=== PATIENT | female | born 1970 | race Caucasian/White ===

== ENCOUNTER 2018-10-10 20:00 | Emergency (ER) | payer MEDICAID | END 2018-10-11 00:47 | disposition home or self-care (01) | LOC: FTE 10-11 00:47 | DX: M25.562 Pain in left knee (principal) | CPT/HCPCS: 29505; 73562; 99283-25 ==

== ENCOUNTER 2018-11-04 07:00 | Emergency (ER) | payer MEDICAID ==
[2018-11-04 07:48] LABS: ADD MAN DIFF? NO
[2018-11-04] MEDS: morphine 4 MG/ML VIAL IV (07:48)
[2018-11-04] MEDS: ONDANSETRON 4 MG INJ IV (07:48)
[2018-11-04] MEDS: SOD CHLORIDE 0.9% 1,000 ML IV (07:48)
[2018-11-04 07:50] LABS: WHITE BLOOD COUNT 16.1 10^3/ul (4.8-10.8)
[2018-11-04 07:50] LABS: BASOPHILS % 0.2 % (0.0-2.0); EOSINOPHILS % 0.1 % (0.0-7.0); HEMATOCRIT 37.6 % (37.0-47.0); HEMOGLOBIN 12.7 g/dl (12.0-16.0); LYMPHOCYTES # 0.8 10^3/ul (0.8-2.9); LYMPHOCYTES % 5.1 % (15.0-51.0); MEAN CORPUSCULAR HEMOGLOBIN 31.4 pg (29.0-33.0); MEAN CORPUSCULAR HGB CONC 33.8 g/dl (32.0-37.0); MEAN CORPUSCULAR VOLUME 93.1 fl (82.0-101.0); MEAN PLATELET VOLUME 9.9 fl (7.4-10.4); MONOCYTE # 1.4 10^3/ul (0.3-0.9); MONOCYTES % 8.8 % (0.0-11.0); NEUTROPHIL # 13.7 10^3/ul (1.6-7.5); NEUTROPHILS % 85.2 % (39.0-77.0); PLATELET COUNT 250 10^3/UL (140-415); RED BLOOD COUNT 4.04 10^6/ul (4.20-5.40); RED CELL DISTRIBUTION WIDTH 12.7 % (11.5-14.5)
[2018-11-04 08:03] LABS: ADD UMIC YES; UR ASCORBIC ACID NEGATIVE (NEGATIVE); UR BACTERIA MANY /HPF (NONE SEEN); UR BILIRUBIN (Dip) NEGATIVE (NEGATIVE); UR BLOOD (Dip) 2+ mg/dL (NEGATIVE); UR CLARITY CLOUDY (CLEAR); UR COLOR YELLOW (YELLOW); UR GLUCOSE (Dip) NEGATIVE (NEGATIVE); UR KETONES (Dip) NEGATIVE (NEGATIVE); UR LEUKOCYTE ESTERASE (Dip) 3+ Leu/ul (NEGATIVE); UR MUCUS MODERATE /HPF (NONE SEEN); UR NITRITE (Dip) POSITIVE (NEGATIVE); UR RBC 5 /HPF (0-5); UR RENAL EPITHELIAL CELL FEW /HPF (NONE SEEN); UR SPECIFIC GRAVITY (Dip) 1.017 (1.003-1.030); UR SQUAMOUS EPITHELIAL CELL FEW /HPF (FEW); UR TOTAL PROTEIN (Dip) 1+ mg/dl (NEGATIVE); UR UROBILINOGEN (Dip) NEGATIVE (NEGATIVE); UR WBC > 182 /HPF (0-5)
[2018-11-04 08:07] LABS: ALANINE AMINOTRANSFERASE 19 IU/L (13-69); ALBUMIN 3.9 g/dl (3.3-4.9); ALBUMIN/GLOBULIN RATIO 1.08; ALKALINE PHOSPHATASE 64 IU/L (42-121); AMYLASE 56 U/L (11-123); ANION GAP 14 (5-13); ASPARTATE AMINO TRANSFERASE 17 IU/L (15-46); BILIRUBIN,INDIRECT 0.3 mg/dl (0-1.1); BILIRUBIN,TOTAL 0.3 mg/dl (0.2-1.3); BLOOD UREA NITROGEN 15 mg/dl (7-20); CALCIUM 8.9 mg/dl (8.4-10.2); CARBON DIOXIDE 24 mmol/L (21-31); CHLORIDE 102 mmol/L (97-110); CREATININE 0.86 mg/dl (0.44-1.00); Estimated GFR > 60 mL/min (>60); GLUCOSE 128 mg/dl (70-220); LIPASE 78 U/L (23-300); POTASSIUM 3.5 mmol/L (3.5-5.1); SODIUM 140 mmol/L (135-144); TOTAL PROTEIN 7.5 g/dl (6.1-8.1)
[2018-11-04 08:09] LABS: INR 1.03; PROTIME 13.6 Sec (11.9-14.9); PT RATIO 1.1
[2018-11-04 08:10] LABS: PARTIAL THROMBOPLASTIN TIME 29.9 Sec (23.0-35.0)
[2018-11-04 08:19] LABS: TROPONIN-I < 0.012 ng/ml (0.000-0.120)
[2018-11-04] MEDS: SOD CHLORIDE 0.9% 100 ML (08:31)
[2018-11-04] MEDS: IOHEXOL 300MG/ML 150 ML BTL (08:31)
[2018-11-04] MEDS: PHENAZOPYRIDINE 100 MG TAB PO (09:40)
[2018-11-04] MEDS: CEFTRIAXONE 1 GM/50 ML (PMX) 50 ML IVPB (09:40)
[2018-11-04] MEDS: KETOROLAC 30 MG INJ IV (10:05)
== END 2018-11-04 11:48 | disposition home or self-care (01) ==
LOC: E/R 07:00
DX: N12 Tubulo-interstitial nephritis, not specified as acute or chronic (principal); N20.0 Calculus of kidney
CPT/HCPCS: 74177; 80053; 81001; 82150; 83690; 84484; 84703; 85025; 85610; 85730; 87086; 87400; 93005; 96374; 96375; 99285-25

== ENCOUNTER 2019-04-01 17:11 | Observation (INO) | payer MEDICAID ==
[2019-04-01 17:59] LABS: ADD MAN DIFF? NO
[2019-04-01 18:02] LABS: WHITE BLOOD COUNT 8.2 10^3/ul (4.8-10.8)
[2019-04-01 18:02] LABS: BASOPHILS % 0.5 % (0.0-2.0); EOSINOPHILS # 0.9 10^3/ul (0.0-0.5); EOSINOPHILS % 11.2 % (0.0-7.0); HEMATOCRIT 40.8 % (37.0-47.0); HEMOGLOBIN 13.6 g/dl (12.0-16.0); LYMPHOCYTES # 2.6 10^3/ul (0.8-2.9); LYMPHOCYTES % 32.4 % (15.0-51.0); MEAN CORPUSCULAR HGB CONC 33.3 g/dl (32.0-37.0); MEAN CORPUSCULAR VOLUME 92.9 fl (82.0-101.0); MEAN PLATELET VOLUME 10.3 fl (7.4-10.4); MONOCYTE # 0.7 10^3/ul (0.3-0.9); MONOCYTES % 8.3 % (0.0-11.0); NEUTROPHIL # 3.9 10^3/ul (1.6-7.5); NEUTROPHILS % 47.4 % (39.0-77.0); PLATELET COUNT 258 10^3/UL (140-415); RED BLOOD COUNT 4.39 10^6/ul (4.20-5.40); RED CELL DISTRIBUTION WIDTH 13.1 % (11.5-14.5)
[2019-04-01] MEDS: SOD CHLORIDE 0.9% 1,000 ML IV ×2 (18:14→21:19)
[2019-04-01 18:19] LABS: ANION GAP 7 (5-13); BLOOD UREA NITROGEN 20 mg/dl (7-20); CALCIUM 9.3 mg/dl (8.4-10.2); CARBON DIOXIDE 28 mmol/L (21-31); CHLORIDE 106 mmol/L (97-110); CHOL/HDL RATIO 3.5 RATIO; CHOLESTEROL 160 mg/dl (100-200); CREATININE 0.99 mg/dl (0.44-1.00); Estimated GFR 60 mL/min (>60); GLUCOSE 100 mg/dl (70-220); HDL CHOLESTEROL 45 mg/dl (37-92); LDL CHOLESTEROL,CALCULATED 85 mg/dl; POTASSIUM 3.7 mmol/L (3.5-5.1); SODIUM 141 mmol/L (135-144); TRIGLYCERIDES 149 mg/dl (0-149)
[2019-04-01 18:23] LABS: INR 0.84; PROTIME 11.6 Sec (11.9-14.9); PT RATIO 0.9
[2019-04-01 18:24] LABS: PARTIAL THROMBOPLASTIN TIME 29.7 Sec (23.0-35.0)
[2019-04-01 18:31] LABS: TROPONIN-I < 0.012 ng/ml (0.000-0.120)
[2019-04-01 18:56] LABS: FREE T3 4.19 pg/ml (2.77-5.27)
[2019-04-01] MEDS: ASPIRIN 325 MG TAB PO (20:26)
[2019-04-01] MEDS ORDERED: ACETAMINOPHEN 325 MG TAB PO ×2 (21:30→23:30)
[2019-04-01] MEDS ORDERED: ONDANSETRON 4 MG INJ IV ×2 (21:30→23:30)
[2019-04-01 21:42] LABS: AMPHETAMINE/METHAMPHETAMINE Negative (NEGATIVE); BARBITURATES Negative (NEGATIVE); BENZODIAZEPINES Negative (NEGATIVE); COCAINE Negative (NEGATIVE); OPIATES Negative (NEGATIVE)
[2019-04-01 22:13] LABS: CANNABINOIDS Negative (NEGATIVE)
[2019-04-01] MEDS ORDERED: DOCUSATE SODIUM 100 MG CAP PO (23:30)
[2019-04-01] MEDS ORDERED: ALBUTEROL/IPRATROPIUM (NEB) 3 ML AMP HHN (23:30)
[2019-04-01] MEDS ORDERED: MAGNESIUM HYDROXIDE 30ML CUP PO (23:30)
[2019-04-01] MEDS ORDERED: morphine 2 MG INJ IV (23:30)
[2019-04-01] MEDS ORDERED: NACL 0.9% 3 ML SYG IV (23:30)
[2019-04-01] MEDS ORDERED: NITROGLYCERIN (SL) 0.4 MG TAB SL (23:30)
[2019-04-01] MEDS ORDERED: LORAZEPAM 2 MG INJ IV (23:30)
[2019-04-01] MEDS ORDERED: hydrALAzine 20 MG INJ IV (23:30)
[2019-04-01] MEDS: SOD CHLORIDE 0.45% 1,000 ML IV (23:46)
[2019-04-01] MEDS: HYDROCODONE/APAP (5/325) TAB PO (23:54)
[2019-04-02 05:25] LABS: ADD MAN DIFF? NO
[2019-04-02 05:31] LABS: BASOPHILS % 0.6 % (0.0-2.0); EOSINOPHILS # 0.8 10^3/ul (0.0-0.5); EOSINOPHILS % 13.3 % (0.0-7.0); HEMATOCRIT 38.8 % (37.0-47.0); LYMPHOCYTES # 2.5 10^3/ul (0.8-2.9); LYMPHOCYTES % 40.6 % (15.0-51.0); MEAN CORPUSCULAR HEMOGLOBIN 31.3 pg (29.0-33.0); MEAN CORPUSCULAR HGB CONC 33.5 g/dl (32.0-37.0); MEAN CORPUSCULAR VOLUME 93.3 fl (82.0-101.0); MEAN PLATELET VOLUME 10.9 fl (7.4-10.4); MONOCYTE # 0.6 10^3/ul (0.3-0.9); MONOCYTES % 9.8 % (0.0-11.0); NEUTROPHIL # 2.2 10^3/ul (1.6-7.5); NEUTROPHILS % 35.4 % (39.0-77.0); PLATELET COUNT 239 10^3/UL (140-415); RED BLOOD COUNT 4.16 10^6/ul (4.20-5.40); RED CELL DISTRIBUTION WIDTH 13.4 % (11.5-14.5)
[2019-04-02 05:31] LABS: WHITE BLOOD COUNT 6.3 10^3/ul (4.8-10.8)
[2019-04-02 06:30] LABS: ANION GAP 5 (5-13); BLOOD UREA NITROGEN 18 mg/dl (7-20); CALCIUM 8.8 mg/dl (8.4-10.2); CARBON DIOXIDE 26 mmol/L (21-31); CHLORIDE 109 mmol/L (97-110); CHOL/HDL RATIO 3.6 RATIO; CHOLESTEROL 131 mg/dl (100-200); Estimated GFR > 60 mL/min (>60); GLUCOSE 82 mg/dl (70-220); HDL CHOLESTEROL 36 mg/dl (37-92); LDL CHOLESTEROL,CALCULATED 84 mg/dl; MAGNESIUM 1.9 mg/dl (1.7-2.5); PHOSPHORUS 3.5 mg/dl (2.5-4.9); POTASSIUM 3.6 mmol/L (3.5-5.1); SODIUM 140 mmol/L (135-144); TRIGLYCERIDES 57 mg/dl (0-149)
[2019-04-02] MEDS: LEVOTHYROXINE 50 MCG TAB PO (07:39)
[2019-04-02 07:51] LABS: HEMOGLOBIN A1C 5.2 % (0-5.9)
[2019-04-02] MEDS: HEPARIN 5,000 UNIT/1 ML VIAL SC (08:54)
[2019-04-02] MEDS: ASPIRIN (EC) 325 MG TAB PO (08:54)
[2019-04-02] MEDS: SOD CHLORIDE 0.45% 1,000 ML IV (14:11)
== END 2019-04-02 18:42 | disposition home or self-care (01) ==
LOC: E/R 17:11 → 2NE 21:20
DX: R20.0 Anesthesia of skin (principal); H53.8 Other visual disturbances; E03.9 Hypothyroidism, unspecified
CPT/HCPCS: 36415; 70450; 70542; 70552; 70553; 71045; 80048; 80061; 80307; 81025; 83036; 83735; 84100; 84439; 84443; 84481; 84484; 85025; 85610; 85730; 93005; 93306; 93880; 99217; 99285-25